=== PATIENT | female | born 1975 | race American Indian/Alaskan Native ===

== ENCOUNTER 2016-08-17 20:58 | Emergency (ER) | payer MEDICAID ==
[2016-08-17 22:58] LABS: Basophils % (Auto) 0.5 % (0.0-1.8); Eosinophils % (Auto) 1.1 % (0.0-4.3); Hematocrit 41.8 % (30.3-42.9); Hemoglobin 13.9 gm/dl (10.1-14.3); Mean Corpuscular HGB Conc 33 % (30-34); Mean Corpuscular Hemoglobin 31 pg (28-32); Mean Corpuscular Volume 91 fl (79-97); Platelet Count 218 K/mm3 (140-440); Red Blood Count 4.57 M/mm3 (3.65-5.03); Red Cell Distribution Width 14.2 % (13.2-15.2); White Blood Count 5.7 K/mm3 (4.5-11.0)
[2016-08-17 23:07] LABS: Alanine Aminotransferase 35 units/L (7-56); Albumin 4.2 g/dL (3.9-5); Albumin/Globulin Ratio 1.2 %; Alkaline Phosphatase 47 units/L (35-129); Anion Gap 16 mmol/L; BUN/Creatinine Ratio 28.33; Blood Urea Nitrogen 17 mg/dL (7-17); Calcium 8.9 mg/dL (8.4-10.2); Carbon Dioxide 24 mmol/L (22-30); Chloride 99.6 mmol/L (98-107); Glucose 82 mg/dL (65-100); Lipase 57 units/L (13-60); Sodium 136 mmol/L (137-145); Total Protein 7.6 g/dL (6.3-8.2)
[2016-08-17 23:26] LABS: Bilirubin,Urine NEG (Negative); Blood,Urine SM (Negative); Ketones,Urine TR mg/dL (Negative); Leukocyte Esterase,Urine LG (Negative); Mucus,Urine 1+ /HPF; Nitrite,Urine NEG (Negative); Trichomonas,Urine FEW /HPF; WBC,Urine > 182.0 /HPF (0.0-6.0)
[2016-08-18] MEDS ORDERED: MORPHINE IV ONE (01:44)
[2016-08-18] MEDS ORDERED: ZOFRAN IV ONE (01:44)
[2016-08-18] MEDS ORDERED: NACL 0.9% 1000 ML 1,000 ML IV ONE (01:44)
--- NOTE | 2016-08-18 01:48 | Emergency Department Report ---
ED Abdominal Pain HPI - General Chief Complaint: Abdominal Pain Stated Complaint: PAINFUL URINATION Time Seen by Provider: 08/18/16 01:43 Source: patient Mode of arrival: Ambulatory Limitations: No Limitations - History of Present Illness Initial Comments: Pt is a 40 yr old female with a h/o HTN, gastric bypass, hysterectomy, and multiple abdominal surgeries who presents with abdominal pain. Pt reports a dull periumbical pain for the past two days with associated nausea and decreased apetite. Pt is having flatus and normal BM's. Pt also reports vaginal discharge that is different from her normal vaginal discharge. Pt is sexually active with one partner, no h/o STD. Otherwise no fevers, chills, JURADO,dizziness, vomiting, diarrhea, recent antibiotic use, SOB, CP, trauma, recent surgery, trauma, travel, or sick contacts Severity scale (0 -10): 5 - Related Data Home Medications Medication Instructions Recorded Confirmed Last Taken ALBUTEROL Inhaler 2 puff IH Q4H PRN 08/17/16 08/17/16 Unknown Advair Diskus 500-50 mcg 2 puff IH BID 08/17/16 08/17/16 Unknown Ambien 6.5 mg PO HS 08/17/16 08/17/16 Unknown Cyanocobalamin 1 ml IM Q2W 08/17/16 08/17/16 Unknown Flonase 1 puff INTRANASAL DAILY 08/17/16 08/17/16 Unknown Labetalol 100 mg PO BID 08/17/16 08/17/16 Unknown PROzac 40 mg PO DAILY 08/17/16 08/17/16 Unknown Singulair 10 mg PO DAILY 08/17/16 08/17/16 Unknown Xanax TAB 1 mg PO HS PRN 08/17/16 08/17/16 Unknown Previous Rx's Medication Instructions Recorded Last Taken Type metroNIDAZOLE [Flagyl] 500 mg PO Q12HR #14 tab 08/18/16 Unknown Rx Allergies Allergy/AdvReac Type Severity Reaction Status Date / Time amlodipine besylate Allergy Swelling Verified 08/17/16 22:11 [From Norvasc] aspirin Allergy Unknown Verified 08/17/16 22:12 lisinopril Allergy Swelling Verified 08/17/16 22:10 loratadine [From Claritin] Allergy Angioedema Verified 08/17/16 22:11 nebivolol HCl [From Bystolic] Allergy Swelling Verified 08/17/16 22:12 topiramate [From Topamax] Allergy Headache Verified 08/17/16 22:10 ED Review of Systems ROS: Stated complaint: PAINFUL URINATION Other details as noted in HPI Comment: All other systems reviewed and negative ED Past Medical Hx - Past Medical History Previous Medical History?: Yes Hx Hypertension: Yes Hx Asthma: Yes Additional medical history: LYMPMEDEMA BILATERAL LEGS. ANEMIA - Surgical History Additional Surgical History: TUBAL LIGATION, GASTRIC BYPASS,HYSTERECTOMY, CERVICAL ABLATION - Social History Smoking Status: Never Smoker Substance Use Type: None - Medications Home Medications: Home Medications Medication Instructions Recorded Confirmed Last Taken Type ALBUTEROL Inhaler 2 puff IH Q4H PRN 08/17/16 08/17/16 Unknown History Advair Diskus 500-50 mcg 2 puff IH BID 08/17/16 08/17/16 Unknown History Ambien 6.5 mg PO HS 08/17/16 08/17/16 Unknown History Cyanocobalamin 1 ml IM Q2W 08/17/16 08/17/16 Unknown History Flonase 1 puff INTRANASAL DAILY 08/17/16 08/17/16 Unknown History Labetalol 100 mg PO BID 08/17/16 08/17/16 Unknown History PROzac 40 mg PO DAILY 08/17/16 08/17/16 Unknown History Singulair 10 mg PO DAILY 08/17/16 08/17/16 Unknown History Xanax TAB 1 mg PO HS PRN 08/17/16 08/17/16 Unknown History metroNIDAZOLE [Flagyl] 500 mg PO Q12HR #14 tab 08/18/16 Unknown Rx ED Physical Exam - General Limitations: No Limitations General appearance: alert, in no apparent distress - Head Head exam: Present: atraumatic, normocephalic - Eye Eye exam: Present: normal appearance, PERRL, EOMI Pupils: Present: normal accommodation - ENT ENT exam: Present: mucous membranes moist - Neck Neck exam: Present: normal inspection - Respiratory Respiratory exam: Present: normal lung sounds bilaterally. Absent: respiratory distress, wheezes, rales, rhonchi, stridor - Cardiovascular Cardiovascular Exam: Present: regular rate, normal rhythm. Absent: systolic murmur, diastolic murmur, rubs, gallop - GI/Abdominal GI/Abdominal exam: Present: soft, tenderness (mild periumbilical), normal bowel sounds. Absent: distended, guarding, rebound, rigid - External exam: Present: normal external exam. Absent: erythema, swelling, lesions, lacerations, bleeding Speculum exam: Present: vaginal discharge (yellowish green, moderate amount, fishy odor). Absent: cervical discharge (Patient has no cervix) Bi-manual exam: Present: normal bi-manual exam. Absent: adnexal tenderness, uterine tenderness - Extremities Exam Extremities exam: Present: normal inspection - Back Exam Back exam: Present: normal inspection - Neurological Exam Neurological exam: Present: alert, oriented X3 - Psychiatric Psychiatric exam: Present: normal affect, normal mood - Skin Skin exam: Present: warm, dry, intact, normal color. Absent: rash ED Course Vital Signs 08/17/16 08/18/16 22:00 01:47 Temperature 98.5 F Pulse Rate 63 63 Respiratory 16 17 Rate Blood Pressure 152/100 Blood Pressure 152/100 146/86 [Left] O2 Sat by Pulse 100 100 Oximetry ED Medical Decision Making - Lab Data Result diagrams: 08/17/16 22:34 08/17/16 22:34 - Radiology Data Radiology results: report reviewed CT abdomen and pelvis: Slight fluid in the pelvis otherwise no intra-abdominal abnormality seen. - Medical Decision Making Patient has a moderate amount of yellow green discharge, will treat for G/C, trichomona and BV Urine noted to have greater than 108 WBCs with no leuk esterase or nitrite, his WBC is reflective of the yellow green vaginal discharge Critical care attestation.: If time is entered above; I have spent that time in minutes in the direct care of this critically ill patient, excluding procedure time. ED Disposition Clinical Impression: Abdominal pain, Vaginitis Disposition: DC-01 TO HOME OR SELFCARE Is pt being admited?: No Condition: Stable Instructions: Abdominal Pain (ED), Vaginitis (ED) Prescriptions: metroNIDAZOLE [Flagyl] 500 mg PO Q12HR #14 tab Referrals: PRIMARY CARE, [Primary Care Provider] - 3-5 Days
[2016-08-18] MEDS ORDERED: XYLOCAINE 1% MPF 5 mL INFILTRATI ONE (02:33)
[2016-08-18] MEDS ORDERED: FLAGYL PO ONE (02:33)
[2016-08-18] MEDS ORDERED: ROCEPHIN IM ONE (02:33)
[2016-08-18] MEDS ORDERED: ZITHROMAX PO ONE (02:33)
--- NOTE | 2016-08-18 03:26 | Cat Scan Report ---
FINAL REPORT PROCEDURE: CT ABDOMEN PELVIS W CON TECHNIQUE: Computerized axial tomography of the abdomen and pelvis was performed after the IV injection of iodinated nonionic contrast. HISTORY: periumbical pain COMPARISON: No prior studies are available for comparison. FINDINGS: Visualized lower thorax: No significant abnormality. Liver: Normal size and attenuation. Spleen: Normal size and attenuation. Gallbladder and biliary system: Normal. Pancreas: Normal. Adrenals: Normal. Kidneys: Both kidneys have a normal size. No hydronephrosis. No renal stones or masses. GI tract: No obstruction. No ileus or enteritis. The cecum, appendix and colon are normal.. Lymph nodes and mesentery: Normal. Vasculature: Normal. Bladder: Normal. Reproductive organs: No pelvic masses.. Peritoneum: Minimal fluid identified in the lower pelvis.. Musculoskeletal structures: No significant abnormality. Other: None. IMPRESSION: There is no evidence of intestinal or urinary tract obstruction. Ileus or enteritis. The appendix is normal. There is slight fluid in the lower pelvis.
[2016-08-18 05:56] VITALS: BP 143/79
== END 2016-08-18 05:54 | disposition home or self-care (01) ==
LOC: ED 20:58
DX: N76.0 Acute vaginitis (principal); I10 Essential (primary) hypertension; J45.909 Unspecified asthma, uncomplicated
CPT/HCPCS: 36415; 74177; 80053; 81001; 83690; 85025; 87210; 87591; 96361; 96372; 96374; 96375; 99285; J0696; J2270; J2405; J7030; Q9967

== ENCOUNTER 2017-06-26 06:09 | Day surgery (SDC) | payer MEDICAID ==
[2017-06-26] MEDS ORDERED: NACL 0.9% 1000 ML 1,000 ML IV SCH (09:00)
--- NOTE | 2017-06-26 13:19 | Anesthesia Day of Surgery ---
Anesthesia Day of Surgery - Day of Surgery Patient Examined: Yes Patient H&P Reviewed: Yes Patient is NPO: Yes
--- NOTE | 2017-06-26 13:19 | Anesthesia Consultation ---
Anesthesia Consult and Med Hx Date of service: 06/26/17 - Airway Anesthetic Teeth Evaluation: Good ROM Head & Neck: Adequate Mental/Hyoid Distance: Adequate Mallampati Class: Class II Intubation Access Assessment: Probably Good - Pulmonary Exam CTA: Yes - Cardiac Exam Cardiac Exam: RRR - Pre-Operative Health Status ASA Pre-Surgery Classification: ASA3 Proposed Anesthetic Plan: MAC - Pulmonary Hx Asthma: Yes Hx Sleep Apnea: Yes - Cardiovascular System Hx Hypertension: Yes - Central Nervous System CVA: Yes (TIA) - Gastrointestinal Hx Gastroesophageal Reflux Disease: Yes
[2017-06-26] MEDS ORDERED: DIPRIVAN 10 MG/ML IV ONE (13:32)
[2017-06-26 14:18] VITALS: BP 155/94
--- NOTE | 2017-06-26 14:40 | Post Anesthesia Evaluation ---
- Post Anesthesia Evaluation Patient Participated: Yes Airway Patent: Yes Stable Respiratory Function: Yes Nausea/Vomiting: No Temp > 96.8F: Yes Pain Manageable: Yes Adequeate Hydration: Yes Anesthesia Complications: No
== END 2017-06-26 06:10 | disposition home or self-care (01) ==
LOC: GIO 06:09
PROVIDERS: ATTEND Specialist
DX: K95.89 Other complications of other bariatric procedure (principal); K21.0 Gastro-esophageal reflux disease with esophagitis; J45.909 Unspecified asthma, uncomplicated; I10 Essential (primary) hypertension; E11.9 Type 2 diabetes mellitus without complications; G47.33 Obstructive sleep apnea (adult) (pediatric); Z98.890 Other specified postprocedural states; Z86.73 Personal history of transient ischemic attack (TIA), and cerebral infarction without residual deficits; Z98.51 Tubal ligation status; Z90.710 Acquired absence of both cervix and uterus; Z88.6 Allergy status to analgesic agent; Z88.5 Allergy status to narcotic agent; Z88.8 Allergy status to other drugs, medicaments and biological substances; Z98.0 Intestinal bypass and anastomosis status
CPT/HCPCS: 43235; J2704; J7030